=== PATIENT | female | born 2000 | race Caucasian/White ===

== ENCOUNTER 2022-04-12 13:51 | Inpatient (IN) | payer OTHER ==
[~2022-04-12] VITALS: Ht 160 cm; Wt 113.9 kg
[2022-04-12 15:37] LABS: BILIRUBIN NEGATIVE (NEGATIVE); BLOOD NEGATIVE Ery/uL (NEGATIVE); CLARITY CLEAR (CLEAR); COLOR YELLOW (YELLOW); GLUCOSE (U) NORMAL (NORMAL); HCT 35.7 % (37.0-47.0); LEUKOCYTES TRACE Leu/uL (NEGATIVE); MCH 29.8 pg (25.0-31.0); MCHC 33.6 g/dL (32.0-36.0); MCV 88.6 fL (78.0-100.0); MPV 12.4 fL (6.0-9.5); NITRITE NEGATIVE (NEGATIVE); PROTEIN NEGATIVE (NEGATIVE); RBC 4.03 M/uL (4.20-5.40); RDW 13.2 % (11.5-14.0); SPECIFIC GRAVITY 1.025 (1.001-1.030); WBC 11.4 K/uL (4.0-10.5); pH 6.5 (5.0-9.0)
[2022-04-12 15:44] LABS: AMPHETAMINES NEGATIVE (NEGATIVE); BARBITURATES NEGATIVE (NEGATIVE); ECSTASY (MDMA) NEGATIVE (NEGATIVE); MARIJUANA (THC) NEGATIVE (NEGATIVE); METHADONE NEGATIVE (NEGATIVE); OPIATES NEGATIVE (NEGATIVE); OXYCODONE NEGATIVE (NEGATIVE)
[2022-04-12 15:58] LABS: BACTERIA 1+
[2022-04-13 06:14] LABS: HCT 29.5 % (37.0-47.0); HGB 9.8 g/dl (12.5-16.0); MCH 30.2 pg (25.0-31.0); MCHC 33.2 g/dL (32.0-36.0); MPV 12.5 fL (6.0-9.5); RBC 3.24 M/uL (4.20-5.40); RDW 13.2 % (11.5-14.0); WBC 13.1 K/uL (4.0-10.5)
[2022-04-14] MEDS ORDERED: PRENATAL FORMU1 EACH PO (10:03)
[2022-04-14] MEDS ORDERED: COLACE100 MG PO (10:03)
[2022-04-14] MEDS ORDERED: FEOSOL325 MG PO (10:03)
[2022-04-14] MEDS ORDERED: IBUPROFEN800 M1 PO (10:03)
[2022-04-14] MEDS ORDERED: PERCOCET 5-3251 EACH PO (10:03)
== END 2022-04-14 13:09 | disposition home or self-care (01) | DRG 787 ==
LOC: FOB 13:51
PROVIDERS: ADMIT Obstetrics & Gynecology
PROC: 10D00Z1 Extraction of Products of Conception, Low, Open Approach (ICD-10-PCS; principal; 2022-04-12 16:00)
DX: O40.3XX0 Polyhydramnios, third trimester, not applicable or unspecified (principal); O10.92 Unspecified pre-existing hypertension complicating childbirth; D62 Acute posthemorrhagic anemia; Z37.0 Single live birth; O69.0XX0 Labor and delivery complicated by prolapse of cord, not applicable or unspecified; Z3A.38 38 weeks gestation of pregnancy; O90.81 Anemia of the puerperium; O99.215 Obesity complicating the puerperium; Z86.16 Personal history of COVID-19; Z79.82 Long term (current) use of aspirin; Z79.899 Other long term (current) drug therapy; Z88.0 Allergy status to penicillin; Z88.1 Allergy status to other antibiotic agents; Z91.040 Latex allergy status
CPT/HCPCS: 36415; 74018; 80305; 81001; 86850; 86900; 86901; 87088; J0456; J0690; J1170; J1885; J2270; J2370; J2405; J2590; J3010; J7050; J7120